=== PATIENT | female | born 1930 | race Caucasian/White ===

== ENCOUNTER 2021-10-06 19:25 | Inpatient (IN) | payer OTHER, MEDICARE ==
[~2021-10-06] VITALS: Ht 160 cm; Wt 61.2 kg
--- NOTE | ~2021-10-06 | EMS ---
[facility] [address] [place] [address] EMS Patient Care Report Name: LILLIAM PRESTON Room #: REG TREV Colon#: [id number] Admission: 10/06/21 Attend Phys: Discharge: Date of : [birth year] Report #: [id number] THIS REPORT FOR: //name// Report Transmitted: 10/06/2021 19:47 EMS Care Summary [place], [place]/[facility] Incident [id number] @ 10/06/2021 18:37 Incident Location [address] [facility] Patient LILLIAM PRESTON Female, 89 Years 1930 Patient Address [address] [place] [address] Patient History Diabetes,Hypertension (HTN),Arthritis, Patient Allergies Gabapentin, Patient Medications Unknown, Chief Complaint lt hip pain Disposition Transported No Lights/[place] Transported To [facility] Narrative arrived on scene and located patient conscious and breathing sitting in a wheel chair in the lobby of her independent living residence patient states she was walking backwards with er walker getting off the elevator and tripped and fell [facility] [address] [place] [address] EMS Patient Care Report Name: LILLIAM PRESTON Room #: REG Faraz.#: [id number] Admission: 10/06/21 Attend Phys: Discharge: Date of : [birth year] Report #: [id number] onto her lt hip lt hip leg is slightly shortened, and states the pain to her hip was rated at 10 of 10 on pain scale while being moved as she was placed into a wheel chair patient also reports lt shoulder pain and states she's had an injury to her shoulder in the past patient denies head pain and denies striking her head denies loc gcs 15 denies neck or back pain denies blood thinner medication denies etoh or street drug use denies chest pain pressure or heaviness's denies soa patient transported without incident report given to rn home health Initial Vitals @18:58P: 110,R: 20,BP: 144/71,Pain: 10/10,GCS: 15,Glucose: 177,SpO2: 97,Revised Trauma: 12, @19:17P: 89,R: 18,BP: 128/84,Pain: 0/10,GCS: 15,SpO2: 96,Revised Trauma: 12, Assessments @19:44MENTAL:Person Oriented,Event Oriented,Time Oriented,Place Oriented,SKIN:HEENT:Head/Face: No Abnormalities,Neck/Airway: No Abnormalities,LUNG SOUNDS:General: No Abnormalities,ABDOMEN:General: No Abnormalities,PELVIS//GI:No Abnormalities,EXTREMITIES:Left Leg: Other,Left Arm: Other,Capillary Refill: Left Upper: < 2 Sec,Capillary Refill: Right Upper: < 2 Sec,Right Arm: No Abnormalities,Right Leg: No Abnormalities,PULSE:Radial: 2+ Normal,NEURO:No Abnormalities, Impression Injury of Hip Procedures @18:43 ALS Assessment Response: UnchangedSucceeded @18:46 IV Therapy - Saline Lock 0cc (20 ga) Site: Antecubital-Right Response: UnchangedFailed @18:45 3-Lead ECG Response: UnchangedSucceeded @18:49 IV Therapy - Saline Lock 1cc (20 ga) Site: Hand-Left Response: UnchangedFailed Timeline 18:35,Call Received 18:35,Dispatch Notified 18:37,Dispatched 18:37,En Route 18:41,On Scene 18:43,At Patient 18:43,ALS Assessment,Response: UnchangedSucceeded, 18:45,3-Lead ECG,Response: UnchangedSucceeded, 18:46,IV Therapy - Saline Lock 0cc 20 ga Site: Antecubital-Right,Response: UnchangedFailed, [address] [address] EMS Patient Care Report Name: LILLIAM PRESTON [id number] Admission: 10/06/21 Attend Phys: Discharge: Date of : [birth year] Report #: [id number] 18:49,IV Therapy - Saline Lock 1cc 20 ga Site: Hand-Left,Response: UnchangedFailed, 18:58,BP: 144/71 M,PULSE: 110,RR: 20 R,SPO2: 97 Ox,ETCO2: ,B,PAIN: 10,GCS: 15, 19:17,BP: 128/84 M,PULSE: 89,RR: 18 R,SPO2: 96 Ox,ETCO2: ,BG: ,PAIN: 0,GCS: 15, 19:18,Depart Scene 19:36,At Destination 19:52,Call Closed Disclaimer v1.1 Copyright 2021 [employer] This EMS Care Summary contains data elements from the applicable legal record (which may be displayed differently). It is designed to provide pertinent information for the following purposes: continuity of care, clinical quality, and state data reporting. The complete legal record is available to ED staff and administrators of the receiving hospital in [employer] Patient Tracker. All data is provided "as is."
[2021-10-06 20:28] LABS: ABSOLUTE NEUTROPHILS 7.1 thou/uL (1.4-8.2); BASOPHILS 0.8 % (0.0-2.0); EOSINOPHILS 2.6 % (0.0-3.0); HEMATOCRIT 31.7 % (37.0-47.0); HEMOGLOBIN 10.7 gm/dL (12.0-15.0); LYMPHOCYTES 12.8 % (24.0-44.0); MCH 30.9 pg (26.0-34.0); MCHC 33.6 g/dL (28.0-37.0); MCV 91.9 fL (80.0-100.0); MONOCYTES 6.9 % (1.0-8.0); PLATELET COUNT 203 thou/uL (150-400); POLYS 76.9 % (36.0-66.0); RBC 3.45 mil/uL (4.20-5.00); WBC 9.2 thou/uL (4.0-11.0)
[2021-10-06 20:40] LABS: CALCIUM 9.2 mg/dL (8.5-10.1); CREATININE 1.6 mg/dL (0.6-1.0); POTASSIUM 4.9 mmol/L (3.5-5.1)
[2021-10-06 20:47] LABS: ALBUMIN 3.3 g/dL (3.4-5.0); TOTAL BILIRUBIN 0.3 mg/dL (0.2-1.0); TOTAL PROTEIN 6.8 g/dL (6.4-8.2)
[2021-10-07 03:13] VITALS: BP 130/68
[2021-10-07 05:15] VITALS: BP 130/68
--- NOTE | 2021-10-07 07:32 | NUR ---
THIS RN ASSUMED PATIENT CARE FROM THE EMERGENCY DEPARTMENT AT 0309 THIS SHIFT. PATIENT IS ALERT AND ORIENTED X4. PATIENT IS MED/ SURGE STATUS. PATIENT IS ON ROOM AIR. PATIENT IS CURRENTLY NPO. PATIENT UTILIZES BED CHAPMAN. PATENT HAS SWELLING TO HER RIGHT HAND/ WRIST. PATIENT HAS AN IV IN HER LEFT HAND THAT IS CURRENTLY INFUSING WITH NS AT 100 ML/ HR. PATIENT WILL CONTINUE TO BE MONITORED.
[2021-10-07 08:29] VITALS: BP 114/74
[2021-10-07] MEDS ORDERED: ATENOLOL 50MG T50 MG PO (09:21)
[2021-10-07] MEDS ORDERED: CARDURA4 MG PO (09:24)
[2021-10-07] MEDS ORDERED: COLESTIPOL HCL1 G1 PO (09:26)
[2021-10-07] MEDS ORDERED: LOSARTAN POTAS100 MG PO (09:27)
[2021-10-07] MEDS ORDERED: SPIRONOLACTONE25 MG PO (09:28)
[2021-10-07] MEDS ORDERED: LEVO-T25 MCG PO (09:30)
--- NOTE | 2021-10-07 09:47 | NUR ---
FELL AT HOME, LEFT PUBIS RAMUS FX-NO SURGICAL INTERVENTION NEEDED. A/O X 4. ROOM AIR. ONE ASSIST WITH TRANSFERS, LEFT HAND IV WITH NS INFUSING @ 100 mls/hr, left shoulder has small scabs and bruises, bilateral arm and hand bruises, right hand edema. morphine 4 mg prn given. daughter at bedside brought med list, med rec completed.
--- NOTE | 2021-10-07 13:30 | NUR ---
PATIENT ADMITTED FOR FRACTURE TO LEFT INFERIOR RAMUS D/T FALL. CHART REVIEWED AND DISCUSSED WITH CARET TEAM. CM MET WITH PT THIS DAY. CM ROLE INTRODUCED. PATIENT REPORTS SHE LIVES IN HOME ALONGE IN APARTMENT AT [facility]. PT [facility] SHE USES AN ELEVATOR TO GET TO HER APARTMENT. PT REPORTS INDEP WITH WALKER AND DOES HER OWN BATHING AND TOILETING. FACILITY ASSIST WITH MEALS. PT REPORTS HER PCP IS SUNNY HINSON AND PRIMARY CONTACT IS HER DAUGHTER PRAVEEN. AT THIS TIME THERAPY RECOMMENDING SKILLED SERVICES ONCE MEDICALLY STABLE TO DISCHARGE. PT AGREEABLE TO [facility]. REFERRAL SENT. CM WILL AWAIT FOR ACCEPT/DENIAL AND FOLLOW UP FOR DISCHARGE PLANNING.
--- NOTE | 2021-10-07 14:32 | NUR ---
S.C. CONSULT [id number] WAS COMPLETED BY MARIAMA WEI.
--- NOTE | 2021-10-07 17:41 | NUR ---
ASSUMED CARE OF PT AT 1705 THIS AFTERNOON. PT WAS ADMITTED FOR LT PUBIC RAMUS FX. PT IS TOE TOUCH WEIGHT BEARING AND NOT C/O ANY PAIN. VSS AND MAINTAINING 97 - 99% SAT. LT SHOULDER SHOWING BRUISING AND TENDERNESS TO TOUCH AND USE. ASSESSMENTS NOTED IN CHART AND OTHERWISE UNREMARKABLE. FALL PRECAUTIONS ARE IN PLACE. CALL LIGHT AND OTHER NEEDS ARE IN REACH. MEDS AND TX GIVEN NEEDED AND SCHEDULED. WILL MONITOR AND NOTE ANY CHANGES.
[2021-10-07 19:26] VITALS: BP 129/63
--- NOTE | 2021-10-08 01:23 | NUR ---
ASSUMED PT CARE AT 1900.PT WAS OBSERVED LYING ON HER BED WATCHING TV AT SHIFT CHANGE.PT'S PIV WAS INFILTRATED,WARM COMPRESS APPLIED.NEW PIV STARTED BY CUSTOMER SERVICE CORRESPONDENCE CLERK TO HER RAC. PARTIAL WT BEARING TO HER LLE.PT GUARDING HER L ARM,TENDER TO TOUCH.PT SLEEPING ON HER BED AT THIS TIME.CALL LIGHT WITHIN REACH.
[2021-10-08 07:25] VITALS: BP 128/60
--- NOTE | 2021-10-08 08:02 | EKG ---
[address] [address] ELECTROCARDIOGRAM REPORT Name: LILLIAM PRESTON Room #: 45- ADM IN M.R.#: [id number] Admission: 10/06/21 Attend Phys: Scott Sequeira, Discharge: Date of : [birth year] Report #: [id number] [facility] ED Test Date: 2021-10-06 Test Time: 20:05:08 Pat Name: LILLIAM PRESTON Department: Room: 2 Gender: F Health Physicist: : 1930 Requested By: Scott Sequeira Order Number: [id number] MD: Hira Pratt Measurements Intervals [place] Rate: 84 P: 39 AL: 148 QRS: 35 QRSD: 95 T: 27 QT: 376 QTc: 445 Interpretive Statements Sinus rhythm No significant abnormality Compared to ECG 12/13/1999 19:16:58 No significant changes Electronically Signed On 10-08-2021 8:02:34 OTOLARYNGOLOGY TEACHER by Hira Pratt [email or web address] <ELECTRONICALLY SIGNED> By: Hira Pratt MD, [facility] 10/08/21801 04 04 Hira Pratt MD, FACC /EPI
--- NOTE | 2021-10-08 09:50 | NUR ---
Assumed care of pt at 0700. Pt alert but confused. Denies pain. Redness observed on abd folds and breast folds. Provider aware. Pt unable to ambulate to bedside commode. RA. Call light within reach. Fall precautions in place. Will continue to monitor.
[2021-10-08 10:11] LABS: HEMATOCRIT 29.4 % (37.0-47.0); HEMOGLOBIN 9.6 gm/dL (12.0-15.0); MCH 30.5 pg (26.0-34.0); MCHC 32.8 g/dL (28.0-37.0); MCV 93.2 fL (80.0-100.0); RBC 3.16 mil/uL (4.20-5.00); RDW 13.3 % (10.5-14.5); WBC 5.2 thou/uL (4.0-11.0)
[2021-10-08 10:17] LABS: CALCIUM 8.4 mg/dL (8.5-10.1); CREATININE 1.2 mg/dL (0.6-1.0); MAGNESIUM 1.3 mg/dL (1.8-2.4)
--- NOTE | 2021-10-08 13:06 | NUR ---
Pt glucose from BMP 225. Recommend accuchecks. Did not note any diabetic medications.
[2021-10-08 16:03] VITALS: BP 131/48
[2021-10-08 20:27] VITALS: BP 133/64
[2021-10-09 03:08] LABS: HEMATOCRIT 25.6 % (37.0-47.0); HEMOGLOBIN 8.6 gm/dL (12.0-15.0); MCH 30.6 pg (26.0-34.0); MCHC 33.4 g/dL (28.0-37.0); MCV 91.6 fL (80.0-100.0); RBC 2.79 mil/uL (4.20-5.00); RDW 13.5 % (10.5-14.5); WBC 5.8 thou/uL (4.0-11.0)
[2021-10-09 04:47] LABS: CALCIUM 7.2 mg/dL (8.5-10.1); MAGNESIUM 1.4 mg/dL (1.8-2.4); POTASSIUM 3.8 mmol/L (3.5-5.1)
--- NOTE | 2021-10-09 07:37 | NUR ---
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
[2021-10-09 07:38] VITALS: BP 126/64
[2021-10-09] MEDS ORDERED: ATENOLOL 50MG T50 M1 PO (09:08)
[2021-10-09] MEDS ORDERED: DOXAZOSIN MESYLA4 MG PO (09:09)
[2021-10-09] MEDS ORDERED: LEVOTHYROXINE50 MCG PO (09:09)
[2021-10-09] MEDS ORDERED: NEURONTIN 300M300 M2 PO (09:10)
[2021-10-09] MEDS ORDERED: CEPHALEXIN 500 MG (09:11)
[2021-10-09 09:19] VITALS: BP 128/60
[2021-10-09] MEDS ORDERED: TYLENOL325 MG PO (12:40)
[2021-10-09] MEDS ORDERED: MAGNESIUM400 MG PO (12:41)
[2021-10-09] MEDS ORDERED: MIRALAX17 GM PO (12:41)
--- NOTE | 2021-10-09 13:10 | NUR ---
REYMUNDO RECIEVED PC FROM [facility] WITH LIBRADO MADRID AND SHE INDICATED THAT PT'S GDTR WORKED THER [facility]. [facility] CALLED CM AND INDICATED THAT THEY WANTED PT TO GO TO [facility] HC OF OP SHE HAD BEEN THERE BEFORE. CM INDICATED THAT PT HAD BEEN CONSENTING TO REFERRAL BEING SENT TO [facility] AND ONE HAD BEEN SENT AND THEY WERE ACCEPTING. CM INDICATED THAT CM WOULD SEND REFERRAL OVER TO [facility] TO HAVE THEM REVIEW FOR POSSIBLE ADMISSION. FLEX IN ADMISSIONS AT [facility] INDICATED THEY DON'T HAVE ANY BEDS THIS WEEK. REYMUNDO CALLED [facility] AND INDICATED THAT. [facility] CAN ACCEPT. CM FAXED ORDERS. [facility] TRANSPORT ARRAGNED FOR 1500. CHART COPY MADE. NURSE GIVEN NUMBER FOR REPRORT. NO OTHER CM INTERVENTION INDICATED. CASE CLOSED.
--- NOTE | 2021-10-09 13:43 | NUR ---
A/O X 3. ROOM AIR. ONE ASSIST WITH WALKER. NO IV. YEAST UNDER BREAST AND NANCY AREA NYSTATIN APPILED. BILATERAL ARM BRUISES AND RIGHT ARM SWELLING. HEPARIN DVT PPX. LEFT SHOULDER AND LEFT HIP PAIN TRAMADOL GIVEN PRN. WILL D/C TODAY TO [facility].
== END 2021-10-09 15:52 | DRG 535 ==
LOC: ER 19:25 → 4W 21:31 → 2N 21:31 → EROBS 21:31 → 4W 10-07 02:30 → 2N 10-07 03:10 → 4W 10-07 16:17
PROVIDERS: Emergency Medicine; Internal Medicine; ADMIT Surgery; ATTEND Surgery
DX: S32.592A Other specified fracture of left pubis, initial encounter for closed fracture (principal); E43 Unspecified severe protein-calorie malnutrition; N17.9 Acute kidney failure, unspecified; N18.9 Chronic kidney disease, unspecified; Z20.822 Contact with and (suspected) exposure to COVID-19; R41.0 Disorientation, unspecified; M19.90 Unspecified osteoarthritis, unspecified site; I12.9 Hypertensive chronic kidney disease with stage 1 through stage 4 chronic kidney disease, or unspecified chronic kidney disease; M19.012 Primary osteoarthritis, left shoulder; E11.22 Type 2 diabetes mellitus with diabetic chronic kidney disease; E03.9 Hypothyroidism, unspecified; Z68.23 Body mass index [BMI] 23.0-23.9, adult; Z88.8 Allergy status to other drugs, medicaments and biological substances; W01.0XXA Fall on same level from slipping, tripping and stumbling without subsequent striking against object, initial encounter; Y93.89 Activity, other specified; Y92.098 Other place in other non-institutional residence as the place of occurrence of the external cause; Y99.8 Other external cause status
CPT/HCPCS: 10047